=== PATIENT | female | born 1975 | race Hispanic/Latino ===

== ENCOUNTER → 2019-07-18 | Outpatient (CLI) | payer BC | LOC: SLEEP 20:38 | PROVIDERS: ATTEND Internal Medicine Critical Care Medicine | DX: G47.33 Obstructive sleep apnea (adult) (pediatric) (principal); G47.59 Other parasomnia | CPT/HCPCS: 95810 ==

== ENCOUNTER → 2019-09-12 | Outpatient (CLI) | payer BC | LOC: SLEEP 17:37 | PROVIDERS: ATTEND Internal Medicine Critical Care Medicine | DX: G47.33 Obstructive sleep apnea (adult) (pediatric) (principal) ==

== ENCOUNTER → 2019-09-13 | Outpatient (CLI) | payer BC | LOC: SLEEP 06:30 | PROVIDERS: ATTEND Internal Medicine Critical Care Medicine | DX: G47.33 Obstructive sleep apnea (adult) (pediatric) (principal) | CPT/HCPCS: 95805; 95810 ==